=== PATIENT | male | born 1955 | race Asian ===

== ENCOUNTER 2020-02-06 09:24 | Inpatient (IN) | payer SELFPAY ==
[~2020-02-06] VITALS: Ht 162.6 cm; Wt 44.5 kg
--- NOTE | 2020-02-06 09:56 | NUR ---
PT C/O STARTED COUHGING 2 DAYS AGO. PER PT'S DAUGHTER HE DID NOT HAVE ANY FEVER. PT WAS SICK WITH A COLD A FEW WEEKS AGO, BUT IMPROVED. NO RECENT TRAVEL.
[2020-02-06] MEDS ORDERED: SODIUM CHLORIDE 0.9% 1,000ML IVBOLUS ONE ×2 (10:00→11:30)
--- NOTE | 2020-02-06 10:21 | NUR ---
PT PLACED ON OPTIFLOW, 45 LITERS. PT RESP RATE 45/MIN. MOUTH MUCOUS MEMBRANES DRY. PT HAS FREQUENT COUGH, NO NOTICEABLE MUCUS PRODUCTION.
[2020-02-06] MEDS ORDERED: CEFTRIAXONE PMX 1GM/50ML 50 ML ONE (10:23)
[2020-02-06] MEDS ORDERED: DOXYCYCLINE 100 MG in DEXTROSE 5% 250 ML IV SCH ×2 (10:30→14:19)
[2020-02-06] MEDS ORDERED: CEFTRIAXONE PMX 1GM/50ML 50 ML IV ONE (10:30)
[2020-02-06 10:42] LABS: BASOPHILS % (AUTO) 0 % (0-1); EOSINOPHILS % (AUTO) 0 % (1-7); LYMPHOCYTES % (AUTO) 3 % (22-44); MEAN CORPUSCULAR HEMOGLOBIN 29.8 pg (27.5-34.5); MEAN CORPUSCULAR HGB CONC 33.6 g/dL (33.2-36.2); MEAN PLATELET VOLUME 8.9 fL (7.4-10.4); MONOCYTES % (AUTO) 3 % (2-9); NEUTROPHILS % (AUTO) 94 % (42-75); PLATELET COUNT 241 x10^3/uL (130-400); RED BLOOD COUNT 4.52 x10^6/uL (4.38-5.82); RED CELL DISTRIBUTION WIDTH 13.6 % (9.4-14.8)
[2020-02-06 10:49] LABS: ALANINE AMINOTRANSFERASE 77 U/L (12-78); ALBUMIN 2.4 g/dL (3.4-5.0); ANION GAP 14 mmol/L (5-15); CALCIUM 8.3 mg/dL (8.5-10.1); CHLORIDE 103 mmol/L (98-107); CREATININE 1.42 mg/dL (0.7-1.3)
[2020-02-06 10:56] LABS: ALKALINE PHOSPHATASE 79 U/L (45-117); BILIRUBIN,TOTAL 0.5 mg/dL (0.2-1.0); TOTAL PROTEIN 6.7 g/dL (6.4-8.2)
[2020-02-06 10:57] LABS: MD SCAN
[2020-02-06 10:58] LABS: D-DIMER (DIC) 6.32 ug/mlFEU (0.00-0.52); PROTIME 10.7 Seconds (9.6-11.5)
[2020-02-06] MEDS ORDERED: SUCCINYLCHOLINE 20 MG/ML, 10ML ONE (11:23)
[2020-02-06] MEDS ORDERED: MIDAZOLAM 1 MG/ML, 5ML ONE (11:23)
[2020-02-06] MEDS ORDERED: MIDAZOLAM 1 MG/ML, 5ML IVPush ONE ×2 (11:30→12:30)
[2020-02-06] MEDS ORDERED: SUCCINYLCHOLINE 20 MG/ML, 10ML IVPush ONE (11:30)
[2020-02-06] MEDS ORDERED: DEXAMETHASONE 4 MG/ML, 1ML IVPush ONE (11:30)
--- NOTE | 2020-02-06 11:54 | NUR ---
VERSED 5 MG AND SUCCINLYCHOLINE 100 PREINTUBATION MEDICATION GIVEN FROM [facility] PER DR WESLEY
--- NOTE | 2020-02-06 11:56 | NUR ---
PT INTBUATED WITH 7.5 ET TUBE, 22 LIP LINE WITH 31 CO2 AND LUNG SOUNDS AUSCULTATED ALL [place]. EVEN RISE AND FALL OF CHEST WITH INTUBATION
[2020-02-06] MEDS: MIDAZOLAM HCL 50 MG in SODIUM CHLORIDE 0.9% 40 ML IV PRN (11:59)
[2020-02-06] MEDS ORDERED: FENTANYL PF 100 MCG/2ML IVPush ONE (12:00)
[2020-02-06] MEDS ORDERED: FENTANYL PF 100 MCG/2ML ONE (12:01)
[2020-02-06] MEDS ORDERED: KETAMINE 10 MG/ML, 20ML ONE (12:21)
--- NOTE | 2020-02-06 12:29 | NUR ---
RT AT BEDSIDE WITHTUBE REPOSTIONED AT 24 LIP LINE. SETTINGS: RR 20, 450 TV , PEEP 10, 100 PERCENT
[2020-02-06] MEDS ORDERED: KETAMINE 100 MG/ML, 5ML IV ONE ×3 (12:30→13:30)
--- NOTE | 2020-02-06 12:30 | NUR ---
[place] AND MULU AT BEDSIDE. IV BOLUS INFUSING
--- NOTE | 2020-02-06 12:40 | NUR ---
16 FR NG TUBE PLACED WITH PLACEMENT VERIFIED VIA AUSCULTATION. PLACED TO LOW INTERMITTENT SUCTION
--- NOTE | 2020-02-06 12:54 | NUR ---
OXYGEN SATURATION 65 TO 75 PERCENT WITH RT AWARE AND RETTURNING TO ER. MD AT BEDSIDE AND AWARE
--- NOTE | 2020-02-06 12:55 | NUR ---
50 MCG KETAMINE GIVEN AND OXYGENT SATURATION IMPROVED TO 84 PERCENT. MD AT BEDSIDE PREPARING TO PLACE CENTRAL LINE
--- NOTE | 2020-02-06 12:57 | NUR ---
TOTAL 3 LITERS NORMAL SALINE GIVEN
--- NOTE | 2020-02-06 13:04 | NUR ---
PT GIVEN 10 MCG EPINEPHERINE GIVEN AT DIRECTION OF LAW AT BEDSIDE
--- NOTE | 2020-02-06 13:12 | NUR ---
OXYGEN SATURATION 85 PERCENT WHILE MD PLACING CENTRAL LINE
--- NOTE | 2020-02-06 13:17 | NUR ---
CVC INSERTED. COMPLETED PROCEDURE.
--- NOTE | 2020-02-06 13:18 | NUR ---
VS. 70/45, O2 91%, HR 88.
--- NOTE | 2020-02-06 13:19 | NUR ---
PT GIVEN 10 MCG EPI, VERBAL ORDER DR WESLEY.
--- NOTE | 2020-02-06 13:19 | NUR ---
VS AFTER EPI: 96/63, 87 HR, SPO2 87 %
--- NOTE | 2020-02-06 13:20 | NUR ---
REPORT TO [facility].
[2020-02-06] MEDS: CEFTRIAXONE PMX 1GM/50ML 50 ML IV SCH (13:25)
[2020-02-06] MEDS ORDERED: PROPOFOL 100 ML IV ONE (13:29)
[2020-02-06] MEDS ORDERED: PHARMACY MAY ADJ FOR RENAL FX MC PRN (13:30)
[2020-02-06] MEDS ORDERED: EPINEPHRINE 1 MG/ML, 1ML IVPush ONE ×2 (13:30)
[2020-02-06] MEDS: FAMOTIDINE 20 MG/2 ML IV SCH (13:30)
[2020-02-06] MEDS: DOXYCYCLINE 100 MG in DEXTROSE 5% 250 ML IV SCH ×2 (13:30→23:30)
[2020-02-06] MEDS ORDERED: PHARMACY MAY ADJ FOR RENAL FX MC SCH (13:30)
[2020-02-06] MEDS: PROPOFOL 100 ML IV PRN (13:41)
[2020-02-06 13:43] LABS: TRIGLYCERIDES 129 mg/dL (50-200)
[2020-02-06 13:49] LABS: TROPONIN I 0.595 ng/mL (0.000-0.045)
--- NOTE | 2020-02-06 13:50 | NUR ---
PT TRANSPORTED TO ICU 5 WITH TWO RN'S ON PORTABLE VENTILATOR AND RESPIRATORY
--- NOTE | 2020-02-06 14:02 | NUR ---
[facility] [phone]
[2020-02-06] MEDS: NOREPINEPHRINE 8 MG in SODIUM CHLORIDE 0.9% 242 ML IV PRN (14:16)
[2020-02-06 15:00] LABS: TROPONIN I 0.866 ng/mL (0.000-0.045)
[2020-02-06] MEDS ORDERED: GLUCAGON 1 MG IM PRN (15:00)
[2020-02-06] MEDS ORDERED: DEXTROSE 4 GM TAB.CHEW PO PRN (15:00)
[2020-02-06] MEDS ORDERED: DEXTROSE 50%, 50ML SYRINGE IVPush PRN (15:00)
[2020-02-06] MEDS: ASCORBIC ACID 500 MG TABLET PO SCH (15:00)
[2020-02-06 15:25] VITALS: BP 102/63
[2020-02-06] MEDS ORDERED: POTASSIUM CHLORIDE PMX 100 ML IV ONE (15:30)
[2020-02-06] MEDS: POTASSIUM CHLORIDE 20 MEQ in SODIUM CHLORIDE 0.9% 1,000 ML IV SCH (15:49)
[2020-02-06] MEDS: INSULIN LISPRO 100 UNITS/ML, PEN SQ-INSULIN SCH ×2 (16:36→21:44)
[2020-02-06] MEDS: ENOXAPARIN 40 MG/0.4 ML SQ SCH (21:00)
[2020-02-06] MEDS: SODIUM CHLORIDE FLUSH 10ML SYR IVF SCH (21:43)
[2020-02-07] MEDS: MIDAZOLAM HCL 50 MG in SODIUM CHLORIDE 0.9% 40 ML IV PRN ×4 (01:17→23:36)
[2020-02-07] MEDS: POTASSIUM CHLORIDE 20 MEQ in SODIUM CHLORIDE 0.9% 1,000 ML IV SCH ×3 (01:17→17:35)
[2020-02-07] MEDS: FAMOTIDINE 20 MG/2 ML IV SCH ×2 (01:52→14:50)
[2020-02-07 02:16] LABS: TROPONIN I 0.296 ng/mL (0.000-0.045)
[2020-02-07] MEDS: FENTANYL PF 100 MCG/2ML IVPush PRN ×2 (03:54→20:56)
[2020-02-07 04:03] LABS: BASOPHILS % (AUTO) 0 % (0-1); EOSINOPHILS % (AUTO) 0 % (1-7); LYMPHOCYTES % (AUTO) 6 % (22-44); MEAN CORPUSCULAR HEMOGLOBIN 29.9 pg (27.5-34.5); MEAN CORPUSCULAR HGB CONC 33.1 g/dL (33.2-36.2); MEAN PLATELET VOLUME 9.4 fL (7.4-10.4); MONOCYTES % (AUTO) 4 % (2-9); NEUTROPHILS % (AUTO) 90 % (42-75); PLATELET COUNT 174 x10^3/uL (130-400); RED BLOOD COUNT 3.96 x10^6/uL (4.38-5.82); RED CELL DISTRIBUTION WIDTH 13.6 % (9.4-14.8)
[2020-02-07 04:13] LABS: ANION GAP 5 mmol/L (5-15); CALCIUM 7.4 mg/dL (8.5-10.1); CHLORIDE 113 mmol/L (98-107); CREATININE 0.79 mg/dL (0.7-1.3)
[2020-02-07 04:37] LABS: MD SCAN
[2020-02-07 05:16] VITALS: BP 103/67
[2020-02-07] MEDS: INSULIN LISPRO 100 UNITS/ML, PEN SQ-INSULIN SCH ×3 (06:22→21:13)
[2020-02-07 07:35] LABS: BILIRUBIN, DIRECT 0.2 mg/dL (0.1-0.2)
[2020-02-07 07:36] LABS: BILIRUBIN,INDIRECT 0.3 mg/dL (0.0-2.0); BILIRUBIN,TOTAL 0.5 mg/dL (0.2-1.0)
[2020-02-07] MEDS: DEXAMETHASONE 4 MG/ML, 1ML IVPush SCH (08:18)
[2020-02-07] MEDS: ENOXAPARIN 40 MG/0.4 ML SQ SCH (08:20)
[2020-02-07] MEDS: ASCORBIC ACID 500 MG TABLET PO SCH ×2 (08:20→15:59)
[2020-02-07] MEDS: SODIUM CHLORIDE FLUSH 10ML SYR IVF SCH ×2 (08:20→21:12)
[2020-02-07] MEDS: ZINC SULFATE 220 MG CAPSULE PO SCH (08:20)
[2020-02-07] MEDS: CHOLECALCIFEROL 5,000u TAB PO SCH (08:20)
[2020-02-07] MEDS: CEFTRIAXONE PMX 1GM/50ML 50 ML IV SCH (08:24)
[2020-02-07] MEDS: DOXYCYCLINE 100 MG in DEXTROSE 5% 250 ML IV SCH ×2 (11:18→23:11)
[2020-02-07] MEDS: THIAMINE 100MG TABLET PO SCH (11:18)
[2020-02-08] MEDS: POTASSIUM CHLORIDE 20 MEQ in SODIUM CHLORIDE 0.9% 1,000 ML IV SCH (01:58)
[2020-02-08] MEDS: INSULIN LISPRO 100 UNITS/ML, PEN SQ-INSULIN SCH ×4 (03:08→21:00)
[2020-02-08] MEDS: MIDAZOLAM HCL 50 MG in SODIUM CHLORIDE 0.9% 40 ML IV PRN ×4 (04:14→22:40)
[2020-02-08 04:29] VITALS: BP 114/66
[2020-02-08 07:53] LABS: BASOPHILS % (AUTO) 0 % (0-1); EOSINOPHILS % (AUTO) 0 % (1-7); LYMPHOCYTES % (AUTO) 5 % (22-44); MEAN CORPUSCULAR HEMOGLOBIN 30.3 pg (27.5-34.5); MEAN CORPUSCULAR HGB CONC 33.1 g/dL (33.2-36.2); MEAN PLATELET VOLUME 9.5 fL (7.4-10.4); MONOCYTES % (AUTO) 3 % (2-9); NEUTROPHILS % (AUTO) 92 % (42-75); PLATELET COUNT 171 x10^3/uL (130-400); RED BLOOD COUNT 3.95 x10^6/uL (4.38-5.82); RED CELL DISTRIBUTION WIDTH 13.7 % (9.4-14.8)
[2020-02-08 08:02] LABS: ALBUMIN 1.8 g/dL (3.4-5.0); ANION GAP 7 mmol/L (5-15); CALCIUM 7.9 mg/dL (8.5-10.1); CHLORIDE 120 mmol/L (98-107)
[2020-02-08 08:07] LABS: ALANINE AMINOTRANSFERASE 103 U/L (12-78); ALKALINE PHOSPHATASE 85 U/L (45-117); BILIRUBIN,TOTAL 0.4 mg/dL (0.2-1.0); CREATININE 0.66 mg/dL (0.7-1.3); TOTAL PROTEIN 5.3 g/dL (6.4-8.2)
[2020-02-08] MEDS: DEXAMETHASONE 4 MG/ML, 1ML IVPush SCH (08:19)
[2020-02-08] MEDS: ASCORBIC ACID 500 MG TABLET PO SCH ×2 (08:19→16:31)
[2020-02-08] MEDS: ZINC SULFATE 220 MG CAPSULE PO SCH (08:19)
[2020-02-08] MEDS: THIAMINE 100MG TABLET PO SCH (08:19)
[2020-02-08] MEDS: SODIUM CHLORIDE FLUSH 10ML SYR IVF SCH ×2 (08:19→21:02)
[2020-02-08] MEDS: CHOLECALCIFEROL 5,000u TAB PO SCH (08:20)
[2020-02-08 08:22] LABS: MD SCAN
[2020-02-08] MEDS: FAMOTIDINE 20 MG/2 ML IV SCH ×2 (09:44→21:02)
[2020-02-08] MEDS: DOXYCYCLINE 100 MG in DEXTROSE 5% 250 ML IV SCH ×2 (10:32→22:41)
[2020-02-08] MEDS: CEFTRIAXONE PMX 1GM/50ML 50 ML IV SCH (12:08)
[2020-02-08] MEDS ORDERED: REMDESIVIR 200 MG in SODIUM CHLORIDE 0.9% 250 ML IVPB ONE (16:00)
[2020-02-08] MEDS: FENTANYL PF 100 MCG/2ML IVPush PRN ×2 (20:48→22:51)
[2020-02-09] MEDS: PROPOFOL 100 ML IV PRN ×2 (00:10→12:12)
[2020-02-09] MEDS: INSULIN LISPRO 100 UNITS/ML, PEN SQ-INSULIN SCH ×4 (03:00→21:53)
[2020-02-09 04:00] VITALS: BP 121/61
[2020-02-09 04:20] LABS: BASOPHILS % (AUTO) 0 % (0-1); EOSINOPHILS % (AUTO) 0 % (1-7); LYMPHOCYTES % (AUTO) 4 % (22-44); MEAN CORPUSCULAR HEMOGLOBIN 29.9 pg (27.5-34.5); MEAN CORPUSCULAR HGB CONC 33.4 g/dL (33.2-36.2); MEAN PLATELET VOLUME 9.5 fL (7.4-10.4); MONOCYTES % (AUTO) 3 % (2-9); NEUTROPHILS % (AUTO) 93 % (42-75); PLATELET COUNT 139 x10^3/uL (130-400); RED BLOOD COUNT 3.94 x10^6/uL (4.38-5.82); RED CELL DISTRIBUTION WIDTH 13.9 % (9.4-14.8)
[2020-02-09 04:33] LABS: ALANINE AMINOTRANSFERASE 79 U/L (12-78); ALBUMIN 1.7 g/dL (3.4-5.0); ANION GAP 5 mmol/L (5-15); CALCIUM 7.2 mg/dL (8.5-10.1); CHLORIDE 112 mmol/L (98-107); CREATININE 0.54 mg/dL (0.7-1.3); MD SCAN
[2020-02-09 04:36] LABS: ALKALINE PHOSPHATASE 82 U/L (45-117); BILIRUBIN,TOTAL 0.4 mg/dL (0.2-1.0); TOTAL PROTEIN 4.9 g/dL (6.4-8.2); TRIGLYCERIDES 229 mg/dL (50-200)
[2020-02-09] MEDS: MIDAZOLAM HCL 50 MG in SODIUM CHLORIDE 0.9% 40 ML IV PRN ×2 (05:35→15:46)
[2020-02-09] MEDS: DEXAMETHASONE 4 MG/ML, 1ML IVPush SCH (08:03)
[2020-02-09] MEDS: ASCORBIC ACID 500 MG TABLET PO SCH ×2 (08:03→15:46)
[2020-02-09] MEDS: CHOLECALCIFEROL 5,000u TAB PO SCH (08:03)
[2020-02-09] MEDS: ZINC SULFATE 220 MG CAPSULE PO SCH (08:03)
[2020-02-09] MEDS: THIAMINE 100MG TABLET PO SCH (08:04)
[2020-02-09] MEDS: SODIUM CHLORIDE FLUSH 10ML SYR IVF SCH ×2 (08:05→21:00)
[2020-02-09] MEDS: FAMOTIDINE 20 MG/2 ML IV SCH ×2 (08:12→21:47)
[2020-02-09] MEDS ORDERED: DOXYCYCLINE 100MG TABLET PO SCH (09:00)
[2020-02-09] MEDS ORDERED: DOXYCYCLINE 50 MG/5 ML ORAL SUSP NG SCH (09:00)
[2020-02-09] MEDS ORDERED: FUROSEMIDE 40 MG/4 ML IV ONE (10:30)
[2020-02-09] MEDS: CEFTRIAXONE PMX 1GM/50ML 50 ML IV SCH (10:58)
[2020-02-09] MEDS: ENOXAPARIN 40 MG/0.4 ML SQ SCH (10:58)
[2020-02-09] MEDS: REMDESIVIR 100 MG in SODIUM CHLORIDE 0.9% 250 ML IVPB SCH (15:45)
[2020-02-09] MEDS: DOXYCYCLINE 50 MG/5 ML ORAL SUSP NG SCH (21:00)
[2020-02-10] MEDS: INSULIN LISPRO 100 UNITS/ML, PEN SQ-INSULIN SCH ×4 (02:39→22:27)
[2020-02-10 03:45] LABS: CHLORIDE 104 mmol/L (98-107)
[2020-02-10 03:49] LABS: MEAN CORPUSCULAR HGB CONC 33.3 g/dL (33.2-36.2); MEAN PLATELET VOLUME 9.5 fL (7.4-10.4); PLATELET COUNT 150 x10^3/uL (130-400); RED BLOOD COUNT 4.02 x10^6/uL (4.38-5.82); RED CELL DISTRIBUTION WIDTH 13.7 % (9.4-14.8)
[2020-02-10 04:00] VITALS: BP 120/60
[2020-02-10 04:13] LABS: ALANINE AMINOTRANSFERASE 81 U/L (12-78); ALBUMIN 1.9 g/dL (3.4-5.0); ALKALINE PHOSPHATASE 92 U/L (45-117); ANION GAP 6 mmol/L (5-15); BILIRUBIN,TOTAL 0.6 mg/dL (0.2-1.0); CALCIUM 7.5 mg/dL (8.5-10.1); CREATININE 0.67 mg/dL (0.7-1.3); TOTAL PROTEIN 5.4 g/dL (6.4-8.2)
[2020-02-10] MEDS: PROPOFOL 100 ML IV PRN ×2 (04:49→13:52)
[2020-02-10 05:44] LABS: MD YES
[2020-02-10 05:45] LABS: BAND#(MANUAL) 0.54 x10^3/uL; BANDS%(MANUAL) 4 % (0-7); LYMPH#(MANUAL) 0.67 x10^3/uL (1-3.4); LYMPHS% (MANUAL) 5 % (22-44); METAMYELOCYTES# (MANUAL) 0.27 x10^3/uL (0-0); METAMYELOCYTES% (MANUAL) 2 % (0-1); MONOS#(MANUAL) 0.13 x10^3/uL (0.3-2.7); MONOS% (MANUAL) 1 % (2-9); SEG#(MANUAL) 11.79 x10^3/uL (1.8-6.8); SEGS% (MANUAL) 88 % (42-75)
[2020-02-10 05:46] LABS: <PLATELET ESTIMATE> ADEQUATE; <PLT MORPHOLOGY> NORMAL PLT MORPH; <RBC MORPHOLOGY> NORMAL
[2020-02-10] MEDS: MIDAZOLAM HCL 50 MG in SODIUM CHLORIDE 0.9% 40 ML IV PRN (07:08)
[2020-02-10] MEDS: DEXAMETHASONE 4 MG/ML, 1ML IVPush SCH (08:43)
[2020-02-10] MEDS: ASCORBIC ACID 500 MG TABLET PO SCH ×2 (08:45→17:04)
[2020-02-10] MEDS: CEFTRIAXONE PMX 1GM/50ML 50 ML IV SCH (08:45)
[2020-02-10] MEDS: DOXYCYCLINE 50 MG/5 ML ORAL SUSP NG SCH ×2 (08:45→22:24)
[2020-02-10] MEDS: SODIUM CHLORIDE FLUSH 10ML SYR IVF SCH ×2 (08:46→21:00)
[2020-02-10] MEDS: CHOLECALCIFEROL 5,000u TAB PO SCH (08:46)
[2020-02-10] MEDS: THIAMINE 100MG TABLET PO SCH (08:46)
[2020-02-10] MEDS: FAMOTIDINE 20 MG/2 ML IV SCH ×2 (08:46→22:45)
[2020-02-10] MEDS: ZINC SULFATE 220 MG CAPSULE PO SCH (08:47)
[2020-02-10] MEDS: ENOXAPARIN 40 MG/0.4 ML SQ SCH (10:34)
[2020-02-10] MEDS: REMDESIVIR 100 MG in SODIUM CHLORIDE 0.9% 250 ML IVPB SCH (15:39)
[2020-02-10] MEDS: FENTANYL PF 100 MCG/2ML IVPush PRN (20:24)
[2020-02-11 02:52] LABS: BASOPHILS % (AUTO) 0 % (0-1); EOSINOPHILS % (AUTO) 0 % (1-7); LYMPHOCYTES % (AUTO) 3 % (22-44); MEAN CORPUSCULAR HEMOGLOBIN 29.7 pg (27.5-34.5); MEAN PLATELET VOLUME 9.3 fL (7.4-10.4); MONOCYTES % (AUTO) 2 % (2-9); NEUTROPHILS % (AUTO) 95 % (42-75); PLATELET COUNT 131 x10^3/uL (130-400); RED BLOOD COUNT 4.04 x10^6/uL (4.38-5.82); RED CELL DISTRIBUTION WIDTH 13.3 % (9.4-14.8)
[2020-02-11 03:02] LABS: ALANINE AMINOTRANSFERASE 73 U/L (12-78); ALBUMIN 1.7 g/dL (3.4-5.0); ANION GAP 4 mmol/L (5-15); CALCIUM 7.6 mg/dL (8.5-10.1); CHLORIDE 103 mmol/L (98-107); CREATININE 0.63 mg/dL (0.7-1.3)
[2020-02-11 03:04] LABS: ALKALINE PHOSPHATASE 81 U/L (45-117); BILIRUBIN,TOTAL 0.5 mg/dL (0.2-1.0)
[2020-02-11 03:47] LABS: MD SCAN
[2020-02-11 04:00] VITALS: BP 96/59
[2020-02-11] MEDS: INSULIN LISPRO 100 UNITS/ML, PEN SQ-INSULIN SCH ×4 (04:11→21:40)
[2020-02-11] MEDS: PROPOFOL 100 ML IV PRN ×2 (04:12→13:51)
[2020-02-11] MEDS: FENTANYL PF 100 MCG/2ML IVPush PRN (06:08)
[2020-02-11] MEDS: FUROSEMIDE 40 MG/4 ML IV SCH ×2 (08:47→16:43)
[2020-02-11] MEDS: SODIUM CHLORIDE FLUSH 10ML SYR IVF SCH ×2 (08:48→21:37)
[2020-02-11] MEDS: FAMOTIDINE 20 MG/2 ML IV SCH ×2 (08:48→21:36)
[2020-02-11] MEDS: ZINC SULFATE 220 MG CAPSULE PO SCH (08:48)
[2020-02-11] MEDS: DEXAMETHASONE 4 MG/ML, 1ML IVPush SCH (08:48)
[2020-02-11] MEDS: ASCORBIC ACID 500 MG TABLET PO SCH ×2 (08:48→16:43)
[2020-02-11] MEDS: CHOLECALCIFEROL 5,000u TAB PO SCH (08:49)
[2020-02-11] MEDS: CEFTRIAXONE PMX 1GM/50ML 50 ML IV SCH ×2 (08:49→10:06)
[2020-02-11] MEDS: THIAMINE 100MG TABLET PO SCH (08:49)
[2020-02-11] MEDS: ENOXAPARIN 40 MG/0.4 ML SQ SCH (08:50)
[2020-02-11] MEDS: GUAIFENESIN 100 MG/5 ML, 10ML UDC NG SCH ×2 (08:51→16:51)
[2020-02-11] MEDS: REMDESIVIR 100 MG in SODIUM CHLORIDE 0.9% 250 ML IVPB SCH (16:01)
[2020-02-11] MEDS: LIDOCAINE-MPF 1%, 2ML ENDO PRN (22:37)
[2020-02-12] MEDS: FENTANYL PF 100 MCG/2ML IVPush PRN ×2 (00:31→12:46)
[2020-02-12] MEDS: GUAIFENESIN 100 MG/5 ML, 10ML UDC NG SCH (01:43)
[2020-02-12] MEDS: INSULIN LISPRO 100 UNITS/ML, PEN SQ-INSULIN SCH ×4 (03:00→20:29)
[2020-02-12 04:24] VITALS: BP 105/56
[2020-02-12 04:48] LABS: ALANINE AMINOTRANSFERASE 85 U/L (12-78); ALBUMIN 1.8 g/dL (3.4-5.0); ANION GAP 5 mmol/L (5-15); CALCIUM 7.8 mg/dL (8.5-10.1); CHLORIDE 98 mmol/L (98-107); TRIGLYCERIDES 70 mg/dL (50-200)
[2020-02-12 04:50] LABS: ALKALINE PHOSPHATASE 78 U/L (45-117); BILIRUBIN,TOTAL 0.5 mg/dL (0.2-1.0); CREATININE 0.64 mg/dL (0.7-1.3); TOTAL PROTEIN 5.2 g/dL (6.4-8.2)
[2020-02-12] MEDS: PROPOFOL 100 ML IV PRN ×3 (04:51→20:57)
[2020-02-12 04:53] LABS: MEAN CORPUSCULAR HEMOGLOBIN 30.5 pg (27.5-34.5); MEAN CORPUSCULAR HGB CONC 33.2 g/dL (33.2-36.2); MEAN PLATELET VOLUME 9.4 fL (7.4-10.4); PLATELET COUNT 136 x10^3/uL (130-400); RED BLOOD COUNT 3.95 x10^6/uL (4.38-5.82); RED CELL DISTRIBUTION WIDTH 13.6 % (9.4-14.8)
[2020-02-12 05:39] LABS: MD YES
[2020-02-12 05:41] LABS: <RBC MORPHOLOGY> NORMAL; BAND#(MANUAL) 0.48 x10^3/uL; BANDS%(MANUAL) 3 % (0-7); LYMPHS% (MANUAL) 5 % (22-44); MONOS#(MANUAL) 0.16 x10^3/uL (0.3-2.7); MONOS% (MANUAL) 1 % (2-9); MYELOCYTES# (MANUAL) 0.32 x10^3/uL (0-0); MYELOCYTES% (MANUAL) 2 % (0-0); SEG#(MANUAL) 14.24 x10^3/uL (1.8-6.8); SEGS% (MANUAL) 89 % (42-75)
[2020-02-12 05:42] LABS: <PLATELET ESTIMATE> ADEQUATE; <PLT MORPHOLOGY> NORMAL PLT MORPH
[2020-02-12] MEDS: FUROSEMIDE 40 MG/4 ML IV SCH ×2 (08:54→16:23)
[2020-02-12] MEDS: SODIUM CHLORIDE FLUSH 10ML SYR IVF SCH ×2 (08:55→09:59)
[2020-02-12] MEDS ORDERED: GUAIFENESIN/DM 200-20MG, 10ML UDC PO PRN (09:00)
[2020-02-12] MEDS: ZINC SULFATE 220 MG CAPSULE PO SCH (09:00)
[2020-02-12] MEDS: ASCORBIC ACID 500 MG TABLET PO SCH ×2 (09:58→16:16)
[2020-02-12] MEDS: THIAMINE 100MG TABLET PO SCH (09:59)
[2020-02-12] MEDS: CHOLECALCIFEROL 5,000u TAB PO SCH (09:59)
[2020-02-12] MEDS: DEXAMETHASONE 4 MG/ML, 1ML IVPush SCH (09:59)
[2020-02-12] MEDS: ENOXAPARIN 40 MG/0.4 ML SQ SCH (10:02)
[2020-02-12] MEDS: FAMOTIDINE 20 MG/2 ML IV SCH ×2 (10:52→20:57)
[2020-02-12] MEDS: CEFTRIAXONE PMX 1GM/50ML 50 ML IV SCH (10:52)
[2020-02-12] MEDS: REMDESIVIR 100 MG in SODIUM CHLORIDE 0.9% 250 ML IVPB SCH (16:05)
[2020-02-13] MEDS: INSULIN LISPRO 100 UNITS/ML, PEN SQ-INSULIN SCH ×4 (02:43→21:01)
[2020-02-13 04:00] VITALS: BP 117/59
[2020-02-13 05:13] LABS: MEAN CORPUSCULAR HEMOGLOBIN 30.5 pg (27.5-34.5); MEAN CORPUSCULAR HGB CONC 32.8 g/dL (33.2-36.2); MEAN PLATELET VOLUME 9.8 fL (7.4-10.4); PLATELET COUNT 167 x10^3/uL (130-400); RED BLOOD COUNT 3.93 x10^6/uL (4.38-5.82); RED CELL DISTRIBUTION WIDTH 13.6 % (9.4-14.8)
[2020-02-13 05:18] LABS: ANION GAP 7 mmol/L (5-15); CHLORIDE 98 mmol/L (98-107); CREATININE 0.73 mg/dL (0.7-1.3)
[2020-02-13 06:03] LABS: MD YES
[2020-02-13 06:04] LABS: <RBC MORPHOLOGY> NORMAL; BAND#(MANUAL) 0.89 x10^3/uL; BANDS%(MANUAL) 6 % (0-7); LYMPH#(MANUAL) 0.15 x10^3/uL (1-3.4); LYMPHS% (MANUAL) 1 % (22-44); METAMYELOCYTES# (MANUAL) 0.15 x10^3/uL (0-0); METAMYELOCYTES% (MANUAL) 1 % (0-1); MONOS#(MANUAL) 0.59 x10^3/uL (0.3-2.7); MONOS% (MANUAL) 4 % (2-9); MYELOCYTES# (MANUAL) 0.15 x10^3/uL (0-0); MYELOCYTES% (MANUAL) 1 % (0-0); SEG#(MANUAL) 12.88 x10^3/uL (1.8-6.8); SEGS% (MANUAL) 87 % (42-75)
[2020-02-13 06:05] LABS: <PLATELET ESTIMATE> ADEQUATE; <PLT MORPHOLOGY> NORMAL PLT MORPH
[2020-02-13] MEDS: DEXAMETHASONE 4 MG/ML, 1ML IVPush SCH (09:14)
[2020-02-13] MEDS: THIAMINE 100MG TABLET PO SCH (09:14)
[2020-02-13] MEDS: ZINC SULFATE 220 MG CAPSULE PO SCH (09:14)
[2020-02-13] MEDS: CHOLECALCIFEROL 5,000u TAB PO SCH (09:14)
[2020-02-13] MEDS: ASCORBIC ACID 500 MG TABLET PO SCH ×2 (09:14→16:37)
[2020-02-13] MEDS: SODIUM CHLORIDE FLUSH 10ML SYR IVF SCH ×2 (09:15→20:47)
[2020-02-13] MEDS: AcetaZOLAMIDE INJ 500 MG IVPush SCH ×2 (09:15→20:47)
[2020-02-13] MEDS: FAMOTIDINE 20 MG/2 ML IV SCH ×2 (09:20→20:46)
[2020-02-13] MEDS: CEFTRIAXONE PMX 1GM/50ML 50 ML IV SCH (10:23)
[2020-02-13] MEDS: ENOXAPARIN 40 MG/0.4 ML SQ SCH (10:30)
[2020-02-13] MEDS: PROPOFOL 100 ML IV PRN (11:34)
[2020-02-13] MEDS: FENTANYL PF 100 MCG/2ML IVPush PRN (13:39)
[2020-02-13] MEDS: LIDOCAINE-MPF 1%, 2ML ENDO PRN (23:55)
[2020-02-14] MEDS: INSULIN LISPRO 100 UNITS/ML, PEN SQ-INSULIN SCH ×4 (03:34→21:22)
[2020-02-14 04:00] VITALS: BP 110/40
[2020-02-14 05:09] LABS: MEAN CORPUSCULAR HEMOGLOBIN 29.7 pg (27.5-34.5); MEAN CORPUSCULAR HGB CONC 32.5 g/dL (33.2-36.2); MEAN PLATELET VOLUME 9.5 fL (7.4-10.4); PLATELET COUNT 203 x10^3/uL (130-400); RED BLOOD COUNT 4.12 x10^6/uL (4.38-5.82)
[2020-02-14 05:11] LABS: ANION GAP 4 mmol/L (5-15); CALCIUM 8.1 mg/dL (8.5-10.1); CHLORIDE 107 mmol/L (98-107)
[2020-02-14] MEDS: PROPOFOL 100 ML IV PRN ×4 (06:01→20:32)
[2020-02-14 06:15] LABS: MD YES
[2020-02-14 06:16] LABS: BAND#(MANUAL) 0.78 x10^3/uL; BANDS%(MANUAL) 3 % (0-7); LYMPH#(MANUAL) 0.52 x10^3/uL (1-3.4); LYMPHS% (MANUAL) 2 % (22-44); MONOS#(MANUAL) 0.52 x10^3/uL (0.3-2.7); MONOS% (MANUAL) 2 % (2-9); SEG#(MANUAL) 24.09 x10^3/uL (1.8-6.8); SEGS% (MANUAL) 93 % (42-75)
[2020-02-14 06:17] LABS: <PLATELET ESTIMATE> ADEQUATE; <PLT MORPHOLOGY> NORMAL PLT MORPH; <RBC MORPHOLOGY> NORMAL
[2020-02-14] MEDS ORDERED: POTASSIUM CHLORIDE 10% 40 MEQ/30 ML UDC PO ONE (07:30)
[2020-02-14] MEDS: FUROSEMIDE 40 MG/4 ML IV SCH (09:28)
[2020-02-14] MEDS: FAMOTIDINE 20 MG/2 ML IV SCH ×2 (09:28→20:11)
[2020-02-14] MEDS: ASCORBIC ACID 500 MG TABLET PO SCH ×2 (09:28→17:24)
[2020-02-14] MEDS: DEXAMETHASONE 4 MG/ML, 1ML IVPush SCH (09:29)
[2020-02-14] MEDS: SODIUM CHLORIDE FLUSH 10ML SYR IVF SCH ×2 (09:29→20:11)
[2020-02-14] MEDS: ZINC SULFATE 220 MG CAPSULE PO SCH (09:29)
[2020-02-14] MEDS: THIAMINE 100MG TABLET PO SCH (09:29)
[2020-02-14] MEDS: CHOLECALCIFEROL 5,000u TAB PO SCH (09:29)
[2020-02-14] MEDS: FENTANYL PF 100 MCG/2ML IVPush PRN (09:30)
[2020-02-14] MEDS: ENOXAPARIN 40 MG/0.4 ML SQ SCH (10:55)
[2020-02-15] MEDS: FENTANYL PF 100 MCG/2ML IVPush PRN (00:09)
[2020-02-15] MEDS: INSULIN LISPRO 100 UNITS/ML, PEN SQ-INSULIN SCH ×4 (03:42→20:44)
[2020-02-15 04:00] VITALS: BP 92/47
[2020-02-15] MEDS: NOREPINEPHRINE 8 MG in SODIUM CHLORIDE 0.9% 242 ML IV PRN (04:25)
[2020-02-15] MEDS: PROPOFOL 100 ML IV PRN ×3 (04:26→15:42)
[2020-02-15 04:54] LABS: MEAN CORPUSCULAR HEMOGLOBIN 29.6 pg (27.5-34.5); MEAN CORPUSCULAR HGB CONC 32.4 g/dL (33.2-36.2); MEAN PLATELET VOLUME 9.2 fL (7.4-10.4); PLATELET COUNT 195 x10^3/uL (130-400); RED BLOOD COUNT 4.09 x10^6/uL (4.38-5.82); RED CELL DISTRIBUTION WIDTH 13.9 % (9.4-14.8)
[2020-02-15 04:59] LABS: ALANINE AMINOTRANSFERASE 37 U/L (12-78); ALBUMIN 1.9 g/dL (3.4-5.0); ANION GAP 6 mmol/L (5-15); CALCIUM 8.4 mg/dL (8.5-10.1); CHLORIDE 108 mmol/L (98-107)
[2020-02-15 05:02] LABS: ALKALINE PHOSPHATASE 88 U/L (45-117); BILIRUBIN,TOTAL 0.5 mg/dL (0.2-1.0); CREATININE 0.86 mg/dL (0.7-1.3); TOTAL PROTEIN 5.8 g/dL (6.4-8.2); TRIGLYCERIDES 126 mg/dL (50-200)
[2020-02-15 05:52] LABS: MD YES
[2020-02-15 05:53] LABS: <PLATELET ESTIMATE> ADEQUATE; <PLT MORPHOLOGY> NORMAL PLT MORPH; <RBC MORPHOLOGY> NORMAL; BANDS%(MANUAL) 1 % (0-7); LYMPHS% (MANUAL) 4 % (22-44); MONOS% (MANUAL) 1 % (2-9); SEG#(MANUAL) 18.71 x10^3/uL (1.8-6.8); SEGS% (MANUAL) 94 % (42-75)
[2020-02-15] MEDS: ASCORBIC ACID 500 MG TABLET PO SCH ×2 (08:33→15:49)
[2020-02-15] MEDS: ZINC SULFATE 220 MG CAPSULE PO SCH (08:44)
[2020-02-15] MEDS: CHOLECALCIFEROL 5,000u TAB PO SCH (08:44)
[2020-02-15] MEDS: DEXAMETHASONE 4 MG/ML, 1ML IVPush SCH (08:45)
[2020-02-15] MEDS: FUROSEMIDE 40 MG/4 ML IV SCH (08:45)
[2020-02-15] MEDS: SODIUM CHLORIDE FLUSH 10ML SYR IVF SCH ×2 (08:46→21:26)
[2020-02-15] MEDS: FAMOTIDINE 20 MG/2 ML IV SCH ×2 (09:56→21:26)
[2020-02-15] MEDS: THIAMINE 100MG TABLET PO SCH (09:57)
[2020-02-15] MEDS: ENOXAPARIN 40 MG/0.4 ML SQ SCH (10:04)
--- NOTE | 2020-02-15 12:01 | NUR ---
Updated TF recommendations: Promote ON propofol 65 ml/hr OFF propofol 70 ml/hr
[2020-02-16] MEDS: PROPOFOL 100 ML IV PRN ×4 (02:00→21:16)
[2020-02-16 02:45] VITALS: BP 104/56
[2020-02-16] MEDS: INSULIN LISPRO 100 UNITS/ML, PEN SQ-INSULIN SCH ×4 (03:08→19:55)
[2020-02-16] MEDS: FENTANYL PF 100 MCG/2ML IVPush PRN (03:45)
[2020-02-16 04:40] LABS: MEAN CORPUSCULAR HGB CONC 33.1 g/dL (33.2-36.2); MEAN PLATELET VOLUME 8.6 fL (7.4-10.4); PLATELET COUNT 222 x10^3/uL (130-400); RED BLOOD COUNT 4.24 x10^6/uL (4.38-5.82)
[2020-02-16 04:53] LABS: ALANINE AMINOTRANSFERASE 41 U/L (12-78); ANION GAP 3 mmol/L (5-15); CHLORIDE 106 mmol/L (98-107); CREATININE 0.77 mg/dL (0.7-1.3)
[2020-02-16 04:55] LABS: ALKALINE PHOSPHATASE 96 U/L (45-117); BILIRUBIN,TOTAL 0.5 mg/dL (0.2-1.0); TOTAL PROTEIN 6.1 g/dL (6.4-8.2)
[2020-02-16 05:46] LABS: MD YES
[2020-02-16 05:48] LABS: BAND#(MANUAL) 0.42 x10^3/uL; BANDS%(MANUAL) 2 % (0-7); LYMPH#(MANUAL) 0.42 x10^3/uL (1-3.4); LYMPHS% (MANUAL) 2 % (22-44); METAMYELOCYTES# (MANUAL) 0.21 x10^3/uL (0-0); METAMYELOCYTES% (MANUAL) 1 % (0-1); MONOS#(MANUAL) 0.42 x10^3/uL (0.3-2.7); MONOS% (MANUAL) 2 % (2-9); SEG#(MANUAL) 19.62 x10^3/uL (1.8-6.8); SEGS% (MANUAL) 93 % (42-75)
[2020-02-16 05:53] LABS: <PLATELET ESTIMATE> ADEQUATE; <PLT MORPHOLOGY> NORMAL PLT MORPH; ANISOCYTOSIS 1+; LARGE PLATELETS 1+
[2020-02-16 05:54] LABS: OVALOCYTES 1+; PMNS WITH VACUOLES 1+
[2020-02-16] MEDS: NOREPINEPHRINE 8 MG in SODIUM CHLORIDE 0.9% 242 ML IV PRN (06:08)
[2020-02-16] MEDS: ASCORBIC ACID 500 MG TABLET PO SCH (08:02)
[2020-02-16] MEDS: CHOLECALCIFEROL 5,000u TAB PO SCH (08:03)
[2020-02-16] MEDS: THIAMINE 100MG TABLET PO SCH (08:03)
[2020-02-16] MEDS: SODIUM CHLORIDE FLUSH 10ML SYR IVF SCH ×2 (08:03→21:18)
[2020-02-16] MEDS: ZINC SULFATE 220 MG CAPSULE PO SCH (08:03)
[2020-02-16] MEDS: FUROSEMIDE 40 MG/4 ML IV SCH (08:04)
[2020-02-16] MEDS: FAMOTIDINE 20 MG/2 ML IV SCH (08:04)
[2020-02-16] MEDS ORDERED: LACTULOSE 20 GM/30 ML UDC PO PRN (10:00)
[2020-02-16] MEDS: ENOXAPARIN 40 MG/0.4 ML SQ SCH (10:30)
[2020-02-16] MEDS: MIDODRINE 5 MG TABLET PO SCH ×3 (12:00→21:18)
[2020-02-16] MEDS: DOCUSATE 50 MG/5 ML, 10ML UDC PO SCH (12:00)
[2020-02-16] MEDS ORDERED: ASCORBIC ACID 500 MG TABLET PO ONE (20:00)
[2020-02-16] MEDS ORDERED: BISACODYL 10 MG SUPP PR PRN (21:00)
[2020-02-16] MEDS: SENNA 176 MG/5 ML ORAL SOL PO SCH (21:17)
[2020-02-17 04:00] VITALS: BP 101/48
[2020-02-17] MEDS: INSULIN LISPRO 100 UNITS/ML, PEN SQ-INSULIN SCH ×4 (04:20→19:50)
[2020-02-17 04:44] LABS: ALANINE AMINOTRANSFERASE 45 U/L (12-78); ALBUMIN 1.8 g/dL (3.4-5.0); ANION GAP 3 mmol/L (5-15); CALCIUM 8.3 mg/dL (8.5-10.1); CHLORIDE 102 mmol/L (98-107); CREATININE 0.79 mg/dL (0.7-1.3)
[2020-02-17 04:46] LABS: ALKALINE PHOSPHATASE 104 U/L (45-117); BILIRUBIN,TOTAL 0.6 mg/dL (0.2-1.0); TOTAL PROTEIN 5.9 g/dL (6.4-8.2)
[2020-02-17 05:25] LABS: MEAN CORPUSCULAR HEMOGLOBIN 30.1 pg (27.5-34.5); MEAN CORPUSCULAR HGB CONC 33.4 g/dL (33.2-36.2); MEAN PLATELET VOLUME 9.4 fL (7.4-10.4); PLATELET COUNT 210 x10^3/uL (130-400); RED BLOOD COUNT 4.06 x10^6/uL (4.38-5.82)
[2020-02-17] MEDS: PROPOFOL 100 ML IV PRN ×3 (05:37→20:22)
[2020-02-17 06:00] LABS: MD YES
[2020-02-17 06:01] LABS: BAND#(MANUAL) 0.96 x10^3/uL; BANDS%(MANUAL) 5 % (0-7); LYMPH#(MANUAL) 0.58 x10^3/uL (1-3.4); LYMPHS% (MANUAL) 3 % (22-44); METAMYELOCYTES# (MANUAL) 0.38 x10^3/uL (0-0); METAMYELOCYTES% (MANUAL) 2 % (0-1); MONOS#(MANUAL) 0.38 x10^3/uL (0.3-2.7); MONOS% (MANUAL) 2 % (2-9); SEGS% (MANUAL) 88 % (42-75)
[2020-02-17 06:02] LABS: <PLATELET ESTIMATE> ADEQUATE; <PLT MORPHOLOGY> NORMAL PLT MORPH; <RBC MORPHOLOGY> NORMAL
[2020-02-17] MEDS: FUROSEMIDE 40 MG/4 ML IV SCH (07:53)
[2020-02-17] MEDS: DOCUSATE 50 MG/5 ML, 10ML UDC PO SCH (07:53)
[2020-02-17] MEDS: FAMOTIDINE 20 MG/2 ML IV SCH (07:54)
[2020-02-17] MEDS: MIDODRINE 5 MG TABLET PO SCH ×3 (07:54→21:49)
[2020-02-17] MEDS: SODIUM CHLORIDE FLUSH 10ML SYR IVF SCH ×2 (07:55→21:00)
[2020-02-17] MEDS: ENOXAPARIN 40 MG/0.4 ML SQ SCH (10:17)
[2020-02-17] MEDS: FENTANYL PF 100 MCG/2ML IVPush PRN ×2 (16:24→23:24)
[2020-02-17] MEDS: SENNA 176 MG/5 ML ORAL SOL PO SCH (21:49)
[2020-02-17] MEDS: ACETAMINOPHEN 650 MG/20.3 ML UDC PO PRN (22:40)
[2020-02-18] MEDS: PROPOFOL 100 ML IV PRN ×2 (02:24→15:54)
[2020-02-18] MEDS: INSULIN LISPRO 100 UNITS/ML, PEN SQ-INSULIN SCH ×4 (02:37→19:59)
[2020-02-18 04:28] LABS: MEAN CORPUSCULAR HEMOGLOBIN 30.1 pg (27.5-34.5); MEAN CORPUSCULAR HGB CONC 33.1 g/dL (33.2-36.2); MEAN PLATELET VOLUME 9.2 fL (7.4-10.4); PLATELET COUNT 254 x10^3/uL (130-400); RED BLOOD COUNT 4.08 x10^6/uL (4.38-5.82)
[2020-02-18 04:36] LABS: ANION GAP 3 mmol/L (5-15); CALCIUM 8.4 mg/dL (8.5-10.1); CHLORIDE 101 mmol/L (98-107); CREATININE 0.82 mg/dL (0.7-1.3); TRIGLYCERIDES 175 mg/dL (50-200)
[2020-02-18 06:01] LABS: MD YES
[2020-02-18 06:02] LABS: BAND#(MANUAL) 0.18 x10^3/uL; BANDS%(MANUAL) 1 % (0-7); LYMPH#(MANUAL) 0.35 x10^3/uL (1-3.4); LYMPHS% (MANUAL) 2 % (22-44); METAMYELOCYTES# (MANUAL) 0.18 x10^3/uL (0-0); METAMYELOCYTES% (MANUAL) 1 % (0-1); MONOS#(MANUAL) 0.35 x10^3/uL (0.3-2.7); MONOS% (MANUAL) 2 % (2-9); MYELOCYTES# (MANUAL) 0.71 x10^3/uL (0-0); MYELOCYTES% (MANUAL) 4 % (0-0); SEG#(MANUAL) 15.93 x10^3/uL (1.8-6.8); SEGS% (MANUAL) 90 % (42-75)
[2020-02-18 06:04] LABS: ANISOCYTOSIS 1+; POLYCHROMASIA 1+
[2020-02-18 06:05] LABS: <PLATELET ESTIMATE> ADEQUATE; <PLT MORPHOLOGY> NORMAL PLT MORPH
[2020-02-18] MEDS ORDERED: POTASSIUM CHLORIDE 10% 20 MEQ/15 ML UDC PO ONE (07:00)
[2020-02-18] MEDS: CEFAZOLIN 2,000 MG in SODIUM CHLORIDE 0.9% 50 ML IV SCH ×3 (08:19→21:54)
[2020-02-18] MEDS: MIDODRINE 5 MG TABLET PO SCH ×3 (08:19→20:52)
[2020-02-18] MEDS: DOCUSATE 50 MG/5 ML, 10ML UDC PO SCH (08:19)
[2020-02-18] MEDS: FAMOTIDINE 20 MG/2 ML IV SCH (08:19)
[2020-02-18] MEDS: SODIUM CHLORIDE FLUSH 10ML SYR IVF SCH ×2 (08:19→21:00)
[2020-02-18] MEDS: ENOXAPARIN 40 MG/0.4 ML SQ SCH (08:20)
[2020-02-18] MEDS ORDERED: AcetaZOLAMIDE INJ 500 MG IVPush SCH ×3 (09:00→10:00)
[2020-02-18] MEDS: FENTANYL PF 100 MCG/2ML IVPush PRN ×3 (12:17→20:52)
[2020-02-18] MEDS: ACETAMINOPHEN 650 MG/20.3 ML UDC PO PRN (20:52)
[2020-02-18] MEDS: LIDOCAINE-MPF 1%, 2ML ENDO PRN (20:53)
[2020-02-19] MEDS: FENTANYL PF 100 MCG/2ML IVPush PRN ×3 (01:55→12:05)
[2020-02-19] MEDS: PROPOFOL 100 ML IV PRN ×3 (03:44→14:58)
[2020-02-19] MEDS: INSULIN LISPRO 100 UNITS/ML, PEN SQ-INSULIN SCH ×4 (03:44→20:22)
[2020-02-19 04:11] VITALS: BP 117/59
[2020-02-19 04:42] LABS: CALCIUM 8.3 mg/dL (8.5-10.1); CREATININE 0.88 mg/dL (0.7-1.3); MEAN CORPUSCULAR HEMOGLOBIN 29.6 pg (27.5-34.5); MEAN CORPUSCULAR HGB CONC 32.2 g/dL (33.2-36.2); MEAN PLATELET VOLUME 9.3 fL (7.4-10.4); PLATELET COUNT 257 x10^3/uL (130-400); RED BLOOD COUNT 3.97 x10^6/uL (4.38-5.82); RED CELL DISTRIBUTION WIDTH 14.2 % (9.4-14.8)
[2020-02-19 05:14] LABS: ANION GAP 5 mmol/L (5-15); CHLORIDE 108 mmol/L (98-107)
[2020-02-19 05:48] LABS: MD YES
[2020-02-19 05:49] LABS: BAND#(MANUAL) 0.44 x10^3/uL; BANDS%(MANUAL) 3 % (0-7); LYMPH#(MANUAL) 0.74 x10^3/uL (1-3.4); LYMPHS% (MANUAL) 5 % (22-44); METAMYELOCYTES% (MANUAL) 2 % (0-1); MONOS#(MANUAL) 0.15 x10^3/uL (0.3-2.7); MONOS% (MANUAL) 1 % (2-9); SEG#(MANUAL) 13.17 x10^3/uL (1.8-6.8); SEGS% (MANUAL) 89 % (42-75)
[2020-02-19 05:52] LABS: <PLATELET ESTIMATE> ADEQUATE; <PLT MORPHOLOGY> NORMAL PLT MORPH; <RBC MORPHOLOGY> NORMAL
[2020-02-19] MEDS: CEFAZOLIN 2,000 MG in SODIUM CHLORIDE 0.9% 50 ML IV SCH (06:47)
[2020-02-19] MEDS: NOREPINEPHRINE 8 MG in SODIUM CHLORIDE 0.9% 242 ML IV PRN (08:18)
[2020-02-19] MEDS: FAMOTIDINE 20 MG/2 ML IV SCH (09:16)
[2020-02-19] MEDS: DOCUSATE 50 MG/5 ML, 10ML UDC PO SCH (09:16)
[2020-02-19] MEDS: MIDODRINE 5 MG TABLET PO SCH ×3 (09:17→20:19)
[2020-02-19] MEDS: SODIUM CHLORIDE FLUSH 10ML SYR IVF SCH ×2 (09:18→20:25)
[2020-02-19] MEDS: ENOXAPARIN 40 MG/0.4 ML SQ SCH (09:29)
[2020-02-19] MEDS: MIDAZOLAM 1 MG/ML, 2ML IV PRN (12:02)
[2020-02-19] MEDS: CEFAZOLIN PMX 2GM/50ML 50 ML IVPB SCH (20:22)
[2020-02-20] MEDS: MIDAZOLAM 1 MG/ML, 2ML IV PRN ×3 (01:26→13:24)
[2020-02-20] MEDS: INSULIN LISPRO 100 UNITS/ML, PEN SQ-INSULIN SCH ×4 (02:38→20:01)
[2020-02-20] MEDS: CEFAZOLIN PMX 2GM/50ML 50 ML IVPB SCH ×3 (03:56→20:02)
[2020-02-20 04:00] VITALS: BP 106/55
[2020-02-20] MEDS: PROPOFOL 100 ML IV PRN ×3 (04:02→18:38)
[2020-02-20 04:41] LABS: MEAN CORPUSCULAR HEMOGLOBIN 29.3 pg (27.5-34.5); MEAN CORPUSCULAR HGB CONC 32.3 g/dL (33.2-36.2); PLATELET COUNT 232 x10^3/uL (130-400); RED BLOOD COUNT 3.65 x10^6/uL (4.38-5.82); RED CELL DISTRIBUTION WIDTH 14.4 % (9.4-14.8)
[2020-02-20 04:49] LABS: ANION GAP 2 mmol/L (5-15); CALCIUM 8.1 mg/dL (8.5-10.1); CHLORIDE 108 mmol/L (98-107); CREATININE 0.68 mg/dL (0.7-1.3)
[2020-02-20 05:51] LABS: MD YES
[2020-02-20 05:52] LABS: BAND#(MANUAL) 0.87 x10^3/uL; BANDS%(MANUAL) 6 % (0-7); LYMPH#(MANUAL) 0.44 x10^3/uL (1-3.4); LYMPHS% (MANUAL) 3 % (22-44); METAMYELOCYTES# (MANUAL) 0.44 x10^3/uL (0-0); METAMYELOCYTES% (MANUAL) 3 % (0-1); MONOS#(MANUAL) 0.15 x10^3/uL (0.3-2.7); MONOS% (MANUAL) 1 % (2-9); MYELOCYTES# (MANUAL) 0.29 x10^3/uL (0-0); MYELOCYTES% (MANUAL) 2 % (0-0); SEG#(MANUAL) 12.33 x10^3/uL (1.8-6.8); SEGS% (MANUAL) 85 % (42-75)
[2020-02-20 05:53] LABS: <PLATELET ESTIMATE> ADEQUATE; <PLT MORPHOLOGY> NORMAL PLT MORPH; HYPOCHROMIA 1+
[2020-02-20] MEDS ORDERED: POTASSIUM CHLORIDE 10% 20 MEQ/15 ML UDC PO ONE (06:30)
[2020-02-20] MEDS: FAMOTIDINE 20 MG/2 ML IV SCH (08:48)
[2020-02-20] MEDS: DOCUSATE 50 MG/5 ML, 10ML UDC PO SCH (08:49)
[2020-02-20] MEDS: SODIUM CHLORIDE FLUSH 10ML SYR IVF SCH ×2 (08:49→20:07)
[2020-02-20] MEDS: MIDODRINE 5 MG TABLET PO SCH ×3 (08:49→20:00)
[2020-02-20] MEDS: QUETIAPINE 25MG TABLET PO SCH ×2 (10:30→13:24)
[2020-02-20] MEDS: ENOXAPARIN 40 MG/0.4 ML SQ SCH (11:06)
[2020-02-21] MEDS: MIDAZOLAM 1 MG/ML, 2ML IV PRN ×2 (00:40→12:38)
[2020-02-21] MEDS: PROPOFOL 100 ML IV PRN ×3 (02:40→16:42)
[2020-02-21] MEDS: CEFAZOLIN PMX 2GM/50ML 50 ML IVPB SCH ×3 (03:57→20:15)
[2020-02-21 04:00] VITALS: BP 106/62
[2020-02-21] MEDS: INSULIN LISPRO 100 UNITS/ML, PEN SQ-INSULIN SCH ×4 (04:08→20:06)
[2020-02-21 04:32] LABS: MEAN CORPUSCULAR HEMOGLOBIN 29.6 pg (27.5-34.5); MEAN CORPUSCULAR HGB CONC 32.6 g/dL (33.2-36.2); MEAN PLATELET VOLUME 8.7 fL (7.4-10.4); PLATELET COUNT 235 x10^3/uL (130-400); RED BLOOD COUNT 3.51 x10^6/uL (4.38-5.82); RED CELL DISTRIBUTION WIDTH 14.2 % (9.4-14.8)
[2020-02-21 04:41] LABS: ANION GAP 3 mmol/L (5-15); CALCIUM 7.9 mg/dL (8.5-10.1); CHLORIDE 108 mmol/L (98-107); TRIGLYCERIDES 141 mg/dL (50-200)
[2020-02-21 05:45] LABS: MD YES
[2020-02-21 05:47] LABS: <PLATELET ESTIMATE> ADEQUATE; <PLT MORPHOLOGY> NORMAL PLT MORPH; <RBC MORPHOLOGY> NORMAL; BAND#(MANUAL) 0.75 x10^3/uL; BANDS%(MANUAL) 5 % (0-7); LYMPH#(MANUAL) 0.45 x10^3/uL (1-3.4); LYMPHS% (MANUAL) 3 % (22-44); METAMYELOCYTES# (MANUAL) 0.45 x10^3/uL (0-0); METAMYELOCYTES% (MANUAL) 3 % (0-1); MONOS#(MANUAL) 0.45 x10^3/uL (0.3-2.7); MONOS% (MANUAL) 3 % (2-9); SEGS% (MANUAL) 86 % (42-75)
[2020-02-21] MEDS: DOCUSATE 50 MG/5 ML, 10ML UDC PO SCH (08:21)
[2020-02-21] MEDS: SODIUM CHLORIDE FLUSH 10ML SYR IVF SCH ×2 (08:21→20:16)
[2020-02-21] MEDS: MIDODRINE 5 MG TABLET PO SCH ×3 (08:22→20:16)
[2020-02-21] MEDS: QUETIAPINE 25MG TABLET PO SCH ×2 (08:22→20:16)
[2020-02-21] MEDS: FAMOTIDINE 20 MG/2 ML IV SCH (08:22)
[2020-02-21] MEDS: ENOXAPARIN 40 MG/0.4 ML SQ SCH (11:27)
[2020-02-21] MEDS: FENTANYL PF 100 MCG/2ML IVPush PRN (13:04)
[2020-02-21] MEDS: NOREPINEPHRINE 8 MG in SODIUM CHLORIDE 0.9% 242 ML IV PRN (13:04)
[2020-02-22] MEDS: PROPOFOL 100 ML IV PRN ×3 (00:24→21:00)
[2020-02-22] MEDS: CEFAZOLIN PMX 2GM/50ML 50 ML IVPB SCH ×3 (03:37→20:19)
[2020-02-22] MEDS: INSULIN LISPRO 100 UNITS/ML, PEN SQ-INSULIN SCH ×4 (03:37→20:58)
[2020-02-22 03:45] LABS: MEAN CORPUSCULAR HEMOGLOBIN 29.3 pg (27.5-34.5); MEAN CORPUSCULAR HGB CONC 32.4 g/dL (33.2-36.2); MEAN PLATELET VOLUME 9.1 fL (7.4-10.4); PLATELET COUNT 232 x10^3/uL (130-400); RED BLOOD COUNT 3.27 x10^6/uL (4.38-5.82); RED CELL DISTRIBUTION WIDTH 14.1 % (9.4-14.8)
[2020-02-22 03:58] LABS: ANION GAP 3 mmol/L (5-15); CHLORIDE 106 mmol/L (98-107); CREATININE 0.66 mg/dL (0.7-1.3)
[2020-02-22 04:00] VITALS: BP 90/52
[2020-02-22 04:00] LABS: BILIRUBIN,TOTAL 0.6 mg/dL (0.2-1.0)
[2020-02-22 04:53] LABS: MD YES
[2020-02-22 04:55] LABS: BAND#(MANUAL) 0.27 x10^3/uL; BANDS%(MANUAL) 2 % (0-7); LYMPH#(MANUAL) 0.82 x10^3/uL (1-3.4); LYMPHS% (MANUAL) 6 % (22-44); METAMYELOCYTES# (MANUAL) 0.69 x10^3/uL (0-0); METAMYELOCYTES% (MANUAL) 5 % (0-1); MONOS#(MANUAL) 0.14 x10^3/uL (0.3-2.7); MONOS% (MANUAL) 1 % (2-9); SEG#(MANUAL) 11.78 x10^3/uL (1.8-6.8); SEGS% (MANUAL) 86 % (42-75)
[2020-02-22 04:56] LABS: <PLATELET ESTIMATE> ADEQUATE; <PLT MORPHOLOGY> NORMAL PLT MORPH; <RBC MORPHOLOGY> NORMAL
[2020-02-22] MEDS ORDERED: POTASSIUM CHLORIDE 10% 20 MEQ/15 ML UDC PO ONE (07:00)
[2020-02-22] MEDS: DOCUSATE 50 MG/5 ML, 10ML UDC PO SCH (08:16)
[2020-02-22] MEDS: MIDODRINE 5 MG TABLET PO SCH ×3 (08:17→21:03)
[2020-02-22] MEDS: QUETIAPINE 25MG TABLET PO SCH ×2 (08:17→21:04)
[2020-02-22] MEDS: FAMOTIDINE 20 MG/2 ML IV SCH (08:17)
[2020-02-22] MEDS: SODIUM CHLORIDE FLUSH 10ML SYR IVF SCH ×2 (08:18→21:00)
[2020-02-22] MEDS: FENTANYL PF 100 MCG/2ML IVPush PRN ×3 (13:00→23:30)
[2020-02-22] MEDS: MIDAZOLAM 1 MG/ML, 2ML IV PRN ×2 (13:01→14:50)
[2020-02-22] MEDS: ACETAMINOPHEN 650 MG/20.3 ML UDC PO PRN (14:59)
[2020-02-22] MEDS: MIDAZOLAM HCL 50 MG in SODIUM CHLORIDE 0.9% 40 ML IV PRN (15:06)
[2020-02-22 15:54] LABS: MEAN CORPUSCULAR HEMOGLOBIN 29.9 pg (27.5-34.5); MEAN CORPUSCULAR HGB CONC 32.8 g/dL (33.2-36.2); MEAN PLATELET VOLUME 8.8 fL (7.4-10.4); PLATELET COUNT 265 x10^3/uL (130-400); RED BLOOD COUNT 3.34 x10^6/uL (4.38-5.82); RED CELL DISTRIBUTION WIDTH 14.1 % (9.4-14.8)
[2020-02-22 15:59] LABS: MD YES
[2020-02-22 16:38] LABS: BAND#(MANUAL) 1.24 x10^3/uL; BANDS%(MANUAL) 8 % (0-7); EOS#(MANUAL) 0.16 x10^3/uL (0.0-0.4); EOS% (MANUAL) 1 % (1-7); LYMPH#(MANUAL) 0.47 x10^3/uL (1-3.4); LYMPHS% (MANUAL) 3 % (22-44); METAMYELOCYTES# (MANUAL) 0.16 x10^3/uL (0-0); METAMYELOCYTES% (MANUAL) 1 % (0-1); MONOS#(MANUAL) 0.47 x10^3/uL (0.3-2.7); MONOS% (MANUAL) 3 % (2-9); MYELOCYTES# (MANUAL) 0.78 x10^3/uL (0-0); MYELOCYTES% (MANUAL) 5 % (0-0); SEG#(MANUAL) 12.25 x10^3/uL (1.8-6.8); SEGS% (MANUAL) 79 % (42-75)
[2020-02-22 16:39] LABS: POLYCHROMASIA 1+
[2020-02-22 16:40] LABS: <PLATELET ESTIMATE> ADEQUATE; <PLT MORPHOLOGY> NORMAL PLT MORPH; ANISOCYTOSIS 1+
[2020-02-22] MEDS: NOREPINEPHRINE 8 MG in SODIUM CHLORIDE 0.9% 242 ML IV PRN (21:00)
[2020-02-22] MEDS: LIDOCAINE-MPF 1%, 2ML ENDO PRN (23:35)
[2020-02-23] MEDS: PROPOFOL 100 ML IV PRN (02:40)
[2020-02-23] MEDS: ACETAMINOPHEN 650 MG/20.3 ML UDC PO PRN ×2 (02:40→12:59)
[2020-02-23] MEDS: MIDAZOLAM HCL 50 MG in SODIUM CHLORIDE 0.9% 40 ML IV PRN ×2 (02:40→09:39)
[2020-02-23] MEDS: CEFAZOLIN PMX 2GM/50ML 50 ML IVPB SCH ×2 (03:11→13:00)
[2020-02-23] MEDS: INSULIN LISPRO 100 UNITS/ML, PEN SQ-INSULIN SCH ×3 (03:25→14:54)
[2020-02-23 03:31] LABS: MEAN CORPUSCULAR HEMOGLOBIN 29.9 pg (27.5-34.5); MEAN CORPUSCULAR HGB CONC 32.9 g/dL (33.2-36.2); PLATELET COUNT 272 x10^3/uL (130-400)
[2020-02-23 03:36] LABS: ANION GAP 3 mmol/L (5-15); CALCIUM 7.7 mg/dL (8.5-10.1); CHLORIDE 103 mmol/L (98-107); CREATININE 0.61 mg/dL (0.7-1.3)
[2020-02-23 03:37] LABS: BILIRUBIN,TOTAL 0.9 mg/dL (0.2-1.0)
[2020-02-23 04:00] VITALS: BP 114/59
[2020-02-23 04:15] LABS: MD YES
[2020-02-23 04:17] LABS: BAND#(MANUAL) 0.77 x10^3/uL; BANDS%(MANUAL) 5 % (0-7); BASOS#(MANUAL) 0.31 x10^3/uL (0-0.1); BASOS% (MANUAL) 2 % (0-1); LYMPH#(MANUAL) 0.46 x10^3/uL (1-3.4); LYMPHS% (MANUAL) 3 % (22-44); MONOS#(MANUAL) 0.46 x10^3/uL (0.3-2.7); MONOS% (MANUAL) 3 % (2-9); SEGS% (MANUAL) 87 % (42-75)
[2020-02-23 04:18] LABS: <PLATELET ESTIMATE> ADEQUATE; <PLT MORPHOLOGY> NORMAL PLT MORPH; <RBC MORPHOLOGY> NORMAL
[2020-02-23] MEDS: FENTANYL PF 100 MCG/2ML IVPush PRN ×2 (05:44→09:38)
[2020-02-23] MEDS: DOCUSATE 50 MG/5 ML, 10ML UDC PO SCH (07:55)
[2020-02-23] MEDS: QUETIAPINE 25MG TABLET PO SCH (07:56)
[2020-02-23] MEDS: MIDODRINE 5 MG TABLET PO SCH ×2 (07:56→16:00)
[2020-02-23] MEDS: SODIUM CHLORIDE FLUSH 10ML SYR IVF SCH (08:08)
[2020-02-23] MEDS: FAMOTIDINE 20 MG/2 ML IV SCH (08:08)
[2020-02-23] MEDS: NOREPINEPHRINE 8 MG in SODIUM CHLORIDE 0.9% 242 ML IV PRN (09:40)
[2020-02-23] MEDS ORDERED: FENTANYL PF 1,000 MCG in SODIUM CHLORIDE 0.9% 80 ML IV PRN (10:00)
[2020-02-23] MEDS ORDERED: VECURONIUM 10 MG ONE (10:09)
[2020-02-23] MEDS ORDERED: VECURONIUM 50 MG in SODIUM CHLORIDE 0.9% 50 ML IV PRN (10:30)
[2020-02-23] MEDS ORDERED: VECURONIUM 10 MG IVPush ONE (10:30)
[2020-02-23] MEDS ORDERED: ALBUMIN HUMAN 25% 100 ML ONE (11:47)
[2020-02-23] MEDS ORDERED: ALBUMIN HUMAN 25% 100 ML IV ONE (12:00)
[2020-02-23] MEDS ORDERED: ADENOSINE 6 MG/2 ML ONE ×2 (12:47→12:54)
[2020-02-23] MEDS ORDERED: ADENOSINE 6 MG/2 ML IVPush ONE ×2 (15:00)
[2020-02-23] MEDS ORDERED: VASOPRESSIN 20 UNIT in SODIUM CHLORIDE 0.9% 99 ML IV PRN (17:30)
== END 2020-02-23 21:12 | disposition expired | DRG 870 ==
LOC: ED 11:54 → EDIP 12:13 → ICU 14:08
PROVIDERS: ADMIT Internal Medicine; ATTEND Internal Medicine
PROC: 5A1955Z Respiratory Ventilation, Greater than 96 Consecutive Hours (ICD-10-PCS; principal; 2020-02-06)
PROC: 0BH17EZ Insertion of Endotracheal Airway into Trachea, Via Natural or Artificial Opening (ICD-10-PCS; 2020-02-06)
PROC: 02HV33Z Insertion of Infusion Device into Superior Vena Cava, Percutaneous Approach (ICD-10-PCS; 2020-02-06)
PROC: B548ZZA Ultrasonography of Superior Vena Cava, Guidance (ICD-10-PCS; 2020-02-06)
PROC: XW033E5 Introduction of Remdesivir Anti-infective into Peripheral Vein, Percutaneous Approach, New Technology Group 5 (ICD-10-PCS; 2020-02-09)
DX: A41.89 Other specified sepsis (principal); U07.1 COVID-19; E43 Unspecified severe protein-calorie malnutrition; J12.89 Other viral pneumonia; J15.211 Pneumonia due to Methicillin susceptible Staphylococcus aureus; J81.0 Acute pulmonary edema; J96.01 Acute respiratory failure with hypoxia; N17.0 Acute kidney failure with tubular necrosis; R65.21 Severe sepsis with septic shock; G93.41 Metabolic encephalopathy; Z68.1 Body mass index [BMI] 19.9 or less, adult; Z99.11 Dependence on respirator [ventilator] status; E87.4 Mixed disorder of acid-base balance; I46.9 Cardiac arrest, cause unspecified; D64.9 Anemia, unspecified; E87.6 Hypokalemia; F41.9 Anxiety disorder, unspecified; T38.0X5A Adverse effect of glucocorticoids and synthetic analogues, initial encounter; Z66 Do not resuscitate; E86.9 Volume depletion, unspecified
CPT/HCPCS: 36415; 36600; 84145; 96365; 99291; J3490; 71045; 80048; 80053; 82247; 82248; 82728; 82803; 82962; 83036; 83605; 83615; 83735; 84478; 84484; 85025; 85049; 85379; 85384; 85610; 85730; 86140; 87040; 87070; 87077; 87081; 87186; 87205; 87635; 93005; 93306; 94002; 94003; G0378; J0153; J0171; J0690; J0696; J1100; J1650; J1940; J2250; J2704; J3010; J3480; J7060; P9047; J0330; J1120; J1815; J7030; J7050; U0003